=== PATIENT | female | born 1995 | race Asian ===

== ENCOUNTER 2019-08-31 07:20 | Outpatient (CLI) | payer OTHER ==
--- NOTE | 2019-08-31 08:43 | ULT ---
US Pelvic Transvag W Doppler History: Right lower quadrant pain Comparison: None. Findings: Real-time grayscale and color evaluation as well as spectral analysis of the pelvis was per formed transabdominal and transvaginal approach. Uterus measures 6.1 x 3.8 x 2.8 cm and is retroverted. Endometrial thickness is 1.1 cm. Right ovary measures 4.5 x 3.5 x 4 cm and the left ovary measures 2.4 x 1.4 x 2.3 cm. Adequate flow t o both ovaries. There is a large 3.5 cm cyst in the right ovary as well as a 2 cm cyst. Multiple follicles of the left ovary. Small volume free fluid in the pelvis. Impression: 1. Two separate complex cysts of the right ovary. Recommend correlation with hCG level to evaluate fo r a ectopic although this is felt to reflect a corpus luteum and simple cyst. 2. Small volume free fluid in the pelvis likely physiologic. 3. No evidence for ovarian torsion.
== END 2019-08-31 07:21 | disposition home or self-care (01) ==
LOC: ULT 07:20
PROVIDERS: ATTEND Nurse Practitioner Women's Health
DX: R10.31 Right lower quadrant pain (principal); N83.201 Unspecified ovarian cyst, right side
CPT/HCPCS: 76856